=== PATIENT | male | born 1995 | race African-American/Black ===

== ENCOUNTER → 2019-07-14 | Outpatient (CLI) | payer OTHER ==
[2019-07-15 04:06] LABS: RUBELLA AB IGG-REFLAB 3.58 index (Immune >0.99)
[2019-07-15 06:11] LABS: RUBEOLA (MEASLES) IGG 41.1 AU/mL (Immune >16.4)
== END | disposition home or self-care (01) ==
LOC: PUC 11:43
DX: Z02.1 Encounter for pre-employment examination (principal)
CPT/HCPCS: 86706; 86735; 86762; 86765; 86787

== ENCOUNTER 2021-03-17 12:57 | Emergency (ER) | payer OTHER ==
[~2021-03-17] VITALS: Ht 195.6 cm; Wt 136.4 kg
[2021-03-17] MEDS ORDERED: SODIUM CHLORIDE 0.9% 1,000 ML IV ONE ×2 (13:30→14:30)
[2021-03-17 13:44] LABS: BASOPHILS % (AUTO) 0.5 % (0.0-2.0); EOSINOPHILS % (AUTO) 3.6 % (1.0-6.0); HEMATOCRIT 41.2 % (41-53); MEAN CORPUSCULAR HGB CONC 33.9 G/dL (31.0-37.0); MEAN CORPUSCULAR VOLUME 91 fL (80-100); MONOCYTES # (AUTO) 0.4 K/uL (0.1-1.0); MONOCYTES % (AUTO) 7.5 % (2.0-9.0); NEUTROPHILS # (AUTO) 2.4 K/uL (1.8-7.7); NEUTROPHILS % (AUTO) 48.4 % (40.0-70.0); PLATELET COUNT (AUTO) 204 K/uL (150-450); RED CELL DISTRIBUTION WIDTH 13.2 % (11.5-14.5)
[2021-03-17] MEDS ORDERED: KETOROLAC TROMETHAMINE 30 MG/ML VIAL IVP ONE ×2 (14:00→16:45)
[2021-03-17 14:04] LABS: ANION GAP 5 mmol/L (8-16); CALCIUM, TOTAL 8.8 mg/dL (8.8-10.5); CARBON DIOXIDE 31 mmol/L (22-29); CHLORIDE 104 mmol/L (98-107); CREATININE 1.04 mg/dL (0.60-1.30); GLOMERULAR FILTR. RATE CALC > 60 mL/min (>60); GLUCOSE,RANDOM 91 mg/dL (70-110); POTASSIUM 3.8 mmol/L (3.5-5.1); SODIUM SERUM 140 mmol/L (136-145); UREA NITROGEN, BLOOD 16 mg/dL (7-18)
[2021-03-17 14:30] LABS: ALANINE AMINOTRANSFERASE 27 U/L (12-78); ALBUMIN 3.8 g/dL (3.4-5.0); ALKALINE PHOSPHATASE 88 U/L (46-116); ASPARTATE AMINOTRANSFERASE 19 U/L (15-37); BILIRUBIN,TOTAL 0.4 mg/dL (0.1-1.0); CREATINE KINASE, TOTAL ONLY 515 U/L (39-308); TOTAL PROTEIN, SERUM 6.8 g/dL (6.4-8.2)
[2021-03-17] MEDS ORDERED: ONDANSETRON HCL 4 MG/2 ML VIAL IVP ONE (14:30)
[2021-03-17] MEDS ORDERED: MORPHINE SULFATE 4 MG/ML SYRINGE IVP ONE (14:30)
[2021-03-17 15:12] VITALS: BP 151/91
== END 2021-03-17 18:45 | disposition home or self-care (01) ==
LOC: EMS 13:00
DX: M54.2 Cervicalgia (principal); R51.9 Headache, unspecified; M60.9 Myositis, unspecified; F32.9 Major depressive disorder, single episode, unspecified; Z98.890 Other specified postprocedural states
CPT/HCPCS: 80053; 82550; 85025; 96361; 96374; 96375; 99284; J1885; J2270; J2405; J7030

== ENCOUNTER 2023-11-27 23:07 | Emergency (ER) | payer OTHER ==
[~2023-11-27] VITALS: Ht 195.6 cm; Wt 113.6 kg
[2023-11-27 23:50] VITALS: BP 132/64; TEMP 97.9; O2SAT 97
[2023-11-28 00:05] VITALS: PULSE 72; RESP 18; O2SAT 100
[2023-11-28] MEDS: PredniSONE 20 MG TABLET PO ONE (00:06)
[2023-11-28] MEDS: IPRATROPIUM BROMIDE 0.5 MG/2.5 ML NEB SOLUTION NEB ONE (00:06)
[2023-11-28] MEDS: ALBUTEROL SULFATE 2.5 MG/0.5 ML NEB SOLUTION NEB ONE (00:06)
[2023-11-28 00:10] VITALS: PULSE 72; RESP 18; O2SAT 98
[2023-11-28 00:25] VITALS: PULSE 77; RESP 18; O2SAT 100
== END 2023-11-28 01:29 | disposition home or self-care (01) ==
LOC: EMS 23:07
DX: J45.909 Unspecified asthma, uncomplicated (principal); F32.A Depression, unspecified
CPT/HCPCS: 99283; 94640; J7512

== ENCOUNTER 2024-12-03 09:06 | Emergency (ER) | payer OTHER ==
[~2024-12-03] VITALS: Ht 195.6 cm; Wt 136.0 kg
[2024-12-03] MEDS: ONDANSETRON HCL 4 MG/2 ML VIAL IVP ONE (09:22)
[2024-12-03] MEDS: FAMOTIDINE 20 MG/2 ML VIAL IVP ONE (09:22)
[2024-12-03] MEDS: SODIUM CHLORIDE 0.9% 1,000 ML IV ONE (09:23)
[2024-12-03 09:31] LABS: PLATELET COUNT (AUTO) 264 K/uL (150-450); RED BLOOD CELL COUNT(AUTO) 4.80 MIL/uL (4.50-5.90); RED CELL DISTRIBUTION WIDTH 13.4 % (11.5-14.5); WHITE BLOOD COUNT (AUTO) 7.0 K/uL (4.5-11.0)
[2024-12-03 09:38] LABS: CALCIUM, TOTAL 8.8 mg/dL (8.8-10.5); CREATININE 1.15 mg/dL (0.60-1.30); GLOMERULAR FILTR. RATE CALC > 60 mL/min (>60); GLUCOSE,RANDOM 123 mg/dL (70-110); SODIUM SERUM 142 mmol/L (136-145); UREA NITROGEN, BLOOD 7 mg/dL (7-18)
[2024-12-03 09:45] LABS: ASPARTATE AMINOTRANSFERASE 29.0 U/L (15-37); TOTAL PROTEIN, SERUM 7.6 g/dL (6.4-8.2)
[2024-12-03 13:30] VITALS: BP 126/84; PULSE 85; RESP 16; TEMP 98.5; O2SAT 99
== END 2024-12-03 13:45 | disposition home or self-care (01) ==
LOC: EMS 09:06
DX: R11.2 Nausea with vomiting, unspecified (principal); F32.A Depression, unspecified
CPT/HCPCS: 99284; 96374; 96361; 96375; 80048; 80076; 83690; 83735; 85025; 36415; J3490; J2405; J7030

== ENCOUNTER 2025-01-29 05:18 | Emergency (ER) | payer OTHER ==
[~2025-01-29] VITALS: Ht 195.6 cm; Wt 145.4 kg
[2025-01-29 05:24] VITALS: BP 122/86; PULSE 72; RESP 20; TEMP 98.4; O2SAT 100
== END 2025-01-29 06:54 | disposition home or self-care (01) ==
LOC: EMS 05:20
DX: S86.911A Strain of unspecified muscle(s) and tendon(s) at lower leg level, right leg, initial encounter (principal); S86.912A Strain of unspecified muscle(s) and tendon(s) at lower leg level, left leg, initial encounter; M70.51 Other bursitis of knee, right knee; F32.A Depression, unspecified; X58.XXXA Exposure to other specified factors, initial encounter; Y93.89 Activity, other specified; Y92.89 Other specified places as the place of occurrence of the external cause; Y99.8 Other external cause status
CPT/HCPCS: 99283